=== PATIENT | female | born 1990 | race Caucasian/White ===

== ENCOUNTER 2016-08-21 11:47 | Emergency (ER) | payer OTHER ==
[2016-08-21 12:12] VITALS: RESP 18
--- NOTE | 2016-08-21 13:41 | EDPHY ---
H & P Time Seen by Provider: 08/21/16 13:41 HPI/ROS: CHIEF COMPLAINT: Left chest pain HISTORY OF PRESENT ILLNESS: This 25-year-old woman had a similar episode 2 weeks ago which resolved after half an hour. Today about an hour and 1/2 before my evaluation she had sudden onset of 8/10 left chest pain under her breast which was worse with any very deep breath. Only located on the left side without radiation. Not associated with nausea or diaphoresis or cough or hemoptysis. No leg swelling recent trauma immobilization or surgery. [place] like a knife. On my evaluation the pain is completely resolved. REVIEW OF SYSTEMS: Eye: no change in vision ENT: no sore throat Cardiac: HPI Pulmonary: HPI Abdomen: no vomiting, diarrhea, abdominal pain Musculoskeletal: no back pain, no recent immobilization or trauma. Skin: no rash Neuro: Intermittent headache and fatigue Constitutional: no fever : no urinary symptoms A comprehensive 10 point review of systems is otherwise negative aside from elements mentioned in the history of present illness. PAST MEDICAL HISTORY: IUD the Mirena, exercise-induced asthma, right ankle ganglion cyst which was her most recent surgery in March of last year, jaw surgery, right labrum. Social history: No tobacco smoking or cocaine. The negative family history for DVT or premature coronary disease. General Appearance: Alert and conversant, cooperative. Eyes: No scleral icterus. ENT, Mouth: Normal mucous membranes. Respiratory: Normal respiratory effort, breath sounds equal, lungs are clear to auscultation. Cardiovascular: Regular rate and rhythm. Gastrointestinal: Abdomen is soft and non tender. Neurological: Alert and oriented x3. Normally conversant. Face symmetric, normal movement and sensation in all extremities. Skin: Warm and dry, no rashes. Specifically no zoster over area of symptoms. Musculoskeletal: No peripheral edema and no joint swelling. Psychiatric: Not agitated. Emergency Department course/MDM: Patient is PERC negative in that she is less than 50yo, heart rate less than 100 , normal oxygen saturation, no history of DVT or PE, no hemoptysis or estrogen, no unilateral leg swelling. Asymptomatic at the time of discharge. Results discussed, primary care referral. Smoking Status: Current some day smoker Constitutional: Initial Vital Signs Temperature (C) 37.1 C 08/21/16 12:08 Heart Rate 94 08/21/16 12:08 Respiratory Rate 18 03/07/17 12:08 Blood Pressure 117/74 03/07/17 12:08 O2 Sat (%) 94 08/21/16 12:08 O2 Delivery Mode Room Air Allergies/Adverse Reactions: haloperidol [From Haldol] Allergy (Intermediate, Verified 08/21/16 12:12) Other-Enter Comments haloperidol lactate [From Haldol] Allergy (Intermediate, Verified 08/21/16 12:12 ) Other-Enter Comments Home Medications: Medication Instructions Recorded Iud 12/06/15 Medical Decision Making - Diagnostics EKG Interpretation: 12-lead EKG interpreted by me; official reading is in trace master. My interpretation is sinus rhythm rate 63 no acute ischemic changes. Imaging: Chest x-ray viewed independently by myself and personally interpreted as normal. Differential Diagnosis: Differential diagnosis considered for chest pain including but not limited to myocardial ischemia, aortic dissection, pericarditis, pulmonary embolus, chest wall pain, pleural inflammation and pulmonary infectious causes. Departure - Departure Disposition: Home, Routine, Self-Care Clinical Impression: Chest pain Qualifiers: Chest pain type: unspecified Qualified Code(s): R07.9 - Chest pain, unspecified Condition: Good Instructions: Chest Pain (ED) Referrals: NONE *PRIMARY CARE P,. [Primary Care Provider] - As per Instructions Shani Pérez MD [Medical Doctor] - As per Instructions
--- NOTE | 2016-08-21 14:25 | CPEKG ---
Heart Rate: 63 RR Interval: 952 P-R Interval: 152 QRSD Interval: 76 QT Interval: 420 QTC Interval: 430 P [place]: 39 QRS [place]: 80 T Wave [place]: 25 EKG Severity - NORMAL ECG - EKG Impression: SINUS RHYTHM Electronically Signed By: Kodi Graham 21-Aug-2016 14:42:40
[2016-08-21 14:42] VITALS: BP 113/67; PULSE 60; TEMP 98.1; O2SAT 92
== END 2016-08-21 14:42 | disposition home or self-care (01) ==
DX: R07.9 Chest pain, unspecified (principal); F17.200 Nicotine dependence, unspecified, uncomplicated

== ENCOUNTER → 2017-03-06 | Outpatient (CLI) | payer OTHER ==
[~2017-03-06] MED LIST: BUPIVACAINE 0.5% 10 ML SDV ONE; LIDO/EPI 1% **Not for Epidural 20 ML MDV ONE; LIDOCAINE 1% 300 MG/30 ML SDV ONE; THROMBIN (BOVINE) 5,000 UNIT VIAL TP ONE
== END ==
LOC: FIMAGING 07:07
PROVIDERS: ATTEND Midwife
PROC: 0HBV3ZX Excision of Bilateral Breast, Percutaneous Approach, Diagnostic (ICD-10-PCS; principal; 2017-03-06)
DX: N60.11 Diffuse cystic mastopathy of right breast (principal); D24.2 Benign neoplasm of left breast